=== PATIENT | female | born 2000 | race Two or more races ===

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

== ENCOUNTER 2022-01-22 00:34 | Inpatient (IN) | payer OTHER, SELFPAY ==
[2022-01-22] VITALS (7 sets, daily range): BP systolic 92–119; BP diastolic 44–72; PULSE 68–80; RESP 16–18; TEMP 36.2–36.7; O2SAT 98–100; BMI 27.0
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
--- NOTE | 2022-01-22 00:47 | ECG_ITS ---
Test Reason : OVERDOSED Blood Pressure : / mmHG Vent. Rate : 077 BPM Atrial Rate : 077 BPM P-R Int : 116 ms QRS Dur : 090 ms QT Int : 394 ms P-R-T Axes : -14 057 031 degrees QTc Int : 445 ms Poor data quality, interpretation may be adversely affected Normal sinus rhythm with sinus arrhythmia Normal ECG When compared with ECG of 23-MAR-2021 19:33, No significant change was found Referred By: Eddie Alfredo Electronically Signed By:PRITESH OTT
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
[2022-01-22 02:16] LABS: Basophils Percent Auto 0.2 % (0-2); Eosinophils Percent Auto 0.5 % (0-4); Hematocrit 36.7 % (37.0-47.0); Hemoglobin 12.2 g/dl (12.0-16.0); Imm Gran Abs Auto 0.02 X10*3/uL (0.00-0.03); Imm Gran Pct Auto 0.2 % (0.0-0.4); Lymphocytes Absolute Auto 1.3 X10*3/uL (1.2-4.9); MANUAL DIFF FLAG NO; Mean Corpuscular HGB Conc 33.2 g/dl (31.0-35.0); Mean Corpuscular Hemoglobin 27.7 pg (27.0-33.0); Mean Corpuscular Volume 83.2 fL (80.0-98.0); Mean Platelet Volume 10.9 fL (9.4-12.3); Monocytes Absolute Auto 0.5 X10*3/uL (0.1-1.2); Monocytes Percent Auto 5.6 % (2-11); Neutrophils Absolute Auto 6.5 x10*3/uL (2.0-8.3); Neutrophils Percent Auto 77.5 % (45-73); Platelet Count 205 X10*3/uL (160-400); Red Blood Count 4.41 X10*6/uL (4.20-5.50); Red Cell Distribution Width 13.5 % (11.0-16.0); White Blood Count 8.4 X10*3/uL (4.8-10.8)
[2022-01-22 02:36] LABS: COVID-19 Test Negative (Negative); IDNOW Serial# 16C4AD1C
[2022-01-22 02:38] LABS: Acetaminophen LAB < 1 mcg/mL (<30); Alanine Aminotransferase 14 U/L (0-31); Albumin Level 3.8 g/dL (3.5-5.0); Alkaline Phosphatase 86 U/L (39-117); Anion Gap 15 (12-20); Aspartate Amino Transferase 13 U/L (5-31); Bilirubin Total < 0.2 mg/dL (0.0-1.0); Blood Urea Nitrogen 13 mg/dL (9-16); Calcium 8.8 mg/dL (8.4-10.2); Carbon Dioxide 23 mmol/L (22-29); Chloride 107 mmol/L (96-108); Creatinine Clr Calc Pharmacy 120.1; Estimated Glomerular Filt Rate > 60; Ethanol < 10 mg/dL; Glucose Random 112 mg/dL (60-115); Potassium 3.9 mmol/L (3.3-5.1); Salicylate < 5.0 mg/dL (15-30); Sodium 141 mmol/L (135-145); Total Protein 6.5 g/dL (6.5-8.0)
[2022-01-22 02:43] LABS: HCG Quantitative < 2 mIU/mL
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
--- NOTE | 2022-01-22 12:26 | PC.NURSE ---
CARE team at bedside for assessment.
--- NOTE | 2022-01-22 13:52 | PC.NURSE ---
Pt seen for individual intervention on this date. Upon approach, pt was laying in hospital bed with eyes closed and easily roused. Pt expressed to be sleepy and tired, reported 0/10 anxiety and unable to quantify depression at this time. This adjusto writer operator offered pt coping strategies and activities, refused at this time, stated she just wanted to sleep. This adjusto writer operator will follow up tomorrow if patient still in ED.
--- NOTE | 2022-01-22 14:45 | PC.NURSE ---
this publicity writer assumed care of this pt at 1445. pt calm, cooperative with transfer from main ed. pt in room sleeping.
--- NOTE | 2022-01-22 18:53 | PC.NURSE ---
pt in room sleeping since transfer to POD. she did not eat lunch/dinner. per previous RN, Care Team was in with pt while in main ed. no issues observed/reported.
[2022-01-22 23:40] LABS: Amphetamine Screen Urine POSITIVE (Not Detect); Barbiturates, Urine Not Detected (Not Detect); Benzodiazepines Screen Urine Not Detected (Not Detect); Cannabinoid Screen Urine POSITIVE (Not Detect); Cocaine Screen Urine Not Detected (Not Detect); Fentanyl, urine POSITIVE (Not Detect); Opiate Screen Urine Not Detected (Not Detect); Phencyclidine Screen Urine Not Detected (Not Detect)
[2022-01-22 23:41] LABS: UPreg QC Valid YES; Urine Pregnancy NEGATIVE (NEGATIVE)
--- NOTE | 2022-01-23 05:14 | PC.NURSE ---
Patient slept through the night, no distress observed/reported, behavior appropriate and non concerning at tis time, med rec completed/pending provider's approval, patient was assessed care team section 12 inpatient bed search, vss, will continue to monitor.
--- NOTE | 2022-01-23 07:03 | PC.NURSE ---
patient appears to remain asleep at present respirations are even and unlabored patient appears in no distress
[2022-01-23 08:52] LABS: COVID-19 Test Negative (Negative)
[2022-01-23 14:22] VITALS: BP 116/77; PULSE 84; TEMP 36.4; O2SAT 97
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
--- NOTE | 2022-01-23 16:44 | PC.NURSE ---
pt experienced a seizure at 1550. staff helped her to her bed and talked to her after seizure. pt was not injured and is now resting in bed.
--- NOTE | 2022-01-23 16:56 | PC.NURSE ---
pt signed a 3 day on 01/23. notified
[2022-01-23] MEDS: Prazosin HCL 1 MG CAPSULE PO (21:01)
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
[2022-01-23] MEDS: traZODone HCL 100 MG TABLET PO (23:16)
--- NOTE | 2022-01-24 13:57 | HO.PSYCHPN ---
Subjective Subjective Date of Service: 01/24/22 Reason For Visit: s/p OD Trazodone, Bipolar d/o, PTSD, Body dysmorph Subjective Notes: 3 Day Medical Problems Affecting Mental Status: No Interim History: Met with patient. Discussed with Nursing. Review chart. Today reports wanting discharge. 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 Did not want to discuss medications. Discussed three-day notice process. Discussed safety concerns given admission circumstances and need for observation. Reported she was having panic symptoms and wanted space. Later reported to staff she had punched a wall. Reported she could not move her hand. Right hand was swollen. Will order right wrist and hand x-ray. Patient declined interventions such as pain medication or ice. Medication Compliance: Yes Side effects from medications: No Attending Groups: No Review of Systems Acute medical concerns: Yes Punched a wall. Reported she could not move her hand. Right hand was swollen. Will order right wrist and hand x-ray. Patient declined interventions such as pain medication or ice Review of Systems Review of Systems Punched wall hand swollen. Mental Status Exam Mental Status Exam Narrative: He room. Appropriately dressed. Withdrawn. Limited eye contact. Did appear depressed with irritability. Denied SI. No HI or overt psychosis noted. Insight and judgment does appear limited Diagnostics Vital Signs (24Hr): Vital Signs - 24 hr 01/23/22 14:22 Temperature 97.6 F Pulse Rate 84 Blood Pressure 116/77 Pulse Oximetry 97 Oxygen Delivery Method Room Air BMI result Body Mass Index 27.0 Labs Results: 01/22/22 02:10 01/22/22 02:10 Labs: Laboratory Results - last 48 hr 01/22/22 01/22/22 01/23/22 23:13 23:13 08:38 Urine Test NEGATIVE Urine Opiates Screen Not Detected Urine Fentanyl Screen POSITIVE H Ur Barbiturates Screen Not Detected Ur Phencyclidine Scrn Not Detected Ur Amphetamines Screen POSITIVE H U Benzodiazepines Scrn Not Detected Urine Cocaine Screen Not Detected U Marijuana (THC) Screen POSITIVE H COVID-19 (NANCY) Negative COVID-19 Clin Com See Note Medications Medications Current Medications Acetaminophen (Acetaminophen 325 Mg Tablet) 650 mg PO Q6H PRN PRN Reason: Headache/Pain Mild Scale (1-3) Al Hydroxide/Mg Hydroxide (Magnesium Hydrox/Alum Hydrox 30 Ml Oral.Susp) 30 ml PO Q6H PRN PRN Reason: Heartburn/Nausea Hydrocortisone (Hydrocortisone 1 % Cream 28.35 Gm Tube) 1 appl TOPICAL BID VINCE Last Admin: 01/23/22 22:38 Dose: Not Given Hydroxyzine HCl (Hydroxyzine Hcl 25 Mg Tablet) 25 mg PO Q6H PRN PRN Reason: Anxiety Magnesium Hydroxide (Milk Of Magnesia 30 Ml Oral.Susp) 30 ml PO DAILY PRN PRN Reason: Constipation Melatonin (Melatonin 3 Mg Tablet) 3 mg PO BEDTIME PRN PRN Reason: insomnia Prazosin HCl (Prazosin Hcl 1 Mg Capsule) 1 mg PO BEDTIME VINCE; Protocol Last Admin: 01/23/22 21:01 Dose: 1 mg Trazodone HCl (Trazodone Hcl 100 Mg Tablet) 100 mg PO BEDTIME VINCE Last Admin: 01/23/22 23:16 Dose: 100 mg Allergies Allergies Allergy/AdvReac Type Severity Reaction Status Date / Time haloperidol [From HALDOL] Allergy Intermediate DYSTONIC Verified 09/30/21 09:51 REACTION latex [LATEX] Allergy Intermediate HIVES Verified 09/30/21 09:51 mite-Dermatophagoides Allergy Unknown Verified 09/30/21 09:51 farinae, virgilio [dust mite - [place]] Seasonal Allergies Allergy Unknown Verified 09/30/21 09:51 Assessment & Plan Assessment & Plan (1) PTSD (post-traumatic stress disorder): Status: Acute Code(s): F43.10 - Post-traumatic stress disorder, unspecified (2) Bipolar II disorder: Status: Acute Code(s): F31.81 - Bipolar II disorder (3) Borderline personality disorder: Status: Acute Code(s): F60.3 - Borderline personality disorder (4) Psychogenic nonepileptic seizure: Status: Acute Code(s): F44.5 - Conversion disorder with seizures or convulsions (5) Cannabis abuse: Status: Acute Code(s): F12.10 - Cannabis abuse, uncomplicated Plan Merline is a 21 y.o. Female who carries a dx of Bipolar II DO, BPD, PTSD, PNES. She was recently discharged from [facility] after admission 08/29/21-09/04/21. During course of hospitalization, pt requested to discontinue trileptal and was briefly trialed on lamictal and prazosin but ultimately asked for these to be discontinued and for discharge on trazodone.? Pt presented to [facility] ED on 01/22/2022 after she overdosed on 15 tablets of trazodone 100 mg. Per crisis eval, she had not been attending sessions with her OP psych team for 2-3 weeks and she was recently seen by [facility] crisis in the community after disclosing suicidal statements at her PCP office. Utox positive for amphetamines, cannabis, and fentanyl. Denies alcohol abuse. 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 She has hx of multiple psych hospitalization, has extensive OP services including DMH, IHT, OT, therapy, and psych provider. She does not want medication other than trazodone and says her suicide attempt was impulsive. Plan: Will continue trazodone 100 mg HS. Pt was also re-started on prazosin per med rec and she is willing to re-trial this for nightmares. Will continue assessment, engagement. Q15 min safety checks, CV Monitor response to medications. Monitor for safety in the milieu. Discharge on stabilization. Patient seen. Chart reviewed. Discussed with team. Obtain collateral contact info?as needed 01/24/2022: No changes to current med regimen as patient did not want to discuss same. Punched wall. Will provide support and changed to 5 minute checks I spent minutes with the patient and/or on the patient floor today, greater than?50% of which was spent counseling/coordinating care. Patient educated on: therapeutic strategies Informed Consent: understands Reason for contiued inpatient stay Substantial Risk for: harm to self
[2022-01-24 20:45] VITALS: BP 107/65; PULSE 94; RESP 16; TEMP 36.5; O2SAT 98
[2022-01-24] MEDS: traZODone HCL 100 MG TABLET PO (20:47)
[2022-01-24] MEDS: Prazosin HCL 1 MG CAPSULE PO (20:47)
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
[2022-01-25 09:00] VITALS: BP 109/59; PULSE 76; TEMP 36.1
--- NOTE | 2022-01-25 16:44 | HO.PSYCHPN ---
Subjective Subjective Date of Service: 01/25/22 Reason For Visit: s/p OD Trazodone, Bipolar d/o, PTSD, Body dysmorph Subjective Notes: Rodriguez Warning and 3 Day Interim History: Discussed with nursing- no complaints ref hand and full range of motion without pain. Today much brighter yesterday was a bad day . Slept ok. Happy with room mate. No SI. Eager for discharge and driving school Medication Compliance: Yes Side effects from medications: No Attending Groups: Intermittent Review of Systems Acute medical concerns: No Review of Systems Review of Systems unremarkable Mental Status Exam Mental Status Exam Narrative: In room. Fair self care. PLeasant and more engaged. Organized. Less depressed and affect brighter. NO SI, HI, psychosis. Insight and judgment improving Diagnostics Vital Signs (24Hr): Vital Signs - 24 hr 01/24/22 20:45 01/25/22 09:00 Temperature 97.7 F 97 F Pulse Rate 94 76 Respiratory Rate 16 Blood Pressure 107/65 109/59 L Pulse Oximetry 98 Oxygen Delivery Method Room Air BMI result Body Mass Index 27.0 Labs Results: 01/22/22 02:10 01/22/22 02:10 Imaging Radiology Impressions: ITS Impressions Hand/Wrist X-Ray 01/24/22 14:22 IMPRESSION: No acute fracture or dislocation. Medications Medications Current Medications Acetaminophen (Acetaminophen 325 Mg Tablet) 650 mg PO Q6H PRN PRN Reason: Headache/Pain Mild Scale (1-3) Al Hydroxide/Mg Hydroxide (Magnesium Hydrox/Alum Hydrox 30 Ml Oral.Susp) 30 ml PO Q6H PRN PRN Reason: Heartburn/Nausea Hydrocortisone (Hydrocortisone 1 % Cream 28.35 Gm Tube) 1 appl TOPICAL BID VINCE Last Admin: 01/25/22 09:15 Dose: Not Given Hydroxyzine HCl (Hydroxyzine Hcl 25 Mg Tablet) 25 mg PO Q6H PRN PRN Reason: Anxiety Magnesium Hydroxide (Milk Of Magnesia 30 Ml Oral.Susp) 30 ml PO DAILY PRN PRN Reason: Constipation Melatonin (Melatonin 3 Mg Tablet) 3 mg PO BEDTIME PRN PRN Reason: insomnia Prazosin HCl (Prazosin Hcl 1 Mg Capsule) 1 mg PO BEDTIME VINCE; Protocol Last Admin: 01/24/22 20:47 Dose: 1 mg Trazodone HCl (Trazodone Hcl 100 Mg Tablet) 100 mg PO BEDTIME VINCE Last Admin: 01/24/22 20:47 Dose: 100 mg Allergies Allergies Allergy/AdvReac Type Severity Reaction Status Date / Time haloperidol [From HALDOL] Allergy Intermediate DYSTONIC Verified 09/30/21 09:51 REACTION latex [LATEX] Allergy Intermediate HIVES Verified 09/30/21 09:51 mite-Dermatophagoides Allergy Unknown Verified 09/30/21 09:51 farinae, virgilio [dust mite - [place]] Seasonal Allergies Allergy Unknown Verified 09/30/21 09:51 Assessment & Plan Assessment & Plan (1) PTSD (post-traumatic stress disorder): Status: Acute Code(s): F43.10 - Post-traumatic stress disorder, unspecified (2) Bipolar II disorder: Status: Acute Code(s): F31.81 - Bipolar II disorder (3) Borderline personality disorder: Status: Acute Code(s): F60.3 - Borderline personality disorder (4) Psychogenic nonepileptic seizure: Status: Acute Code(s): F44.5 - Conversion disorder with seizures or convulsions (5) Cannabis abuse: Status: Acute Code(s): F12.10 - Cannabis abuse, uncomplicated Plan Merline is a 21 y.o. Female who carries a dx of Bipolar II DO, BPD, PTSD, PNES. She was recently discharged from [facility] after admission 08/29/21-09/04/21. During course of hospitalization, pt requested to discontinue trileptal and was briefly trialed on lamictal and prazosin but ultimately asked for these to be discontinued and for discharge on trazodone.? Pt presented to [facility] ED on 01/22/2022 after she overdosed on 15 tablets of trazodone 100 mg. Per crisis eval, she had not been attending sessions with her OP psych team for 2-3 weeks and she was recently seen by [facility] crisis in the community after disclosing suicidal statements at her PCP office. Utox positive for amphetamines, cannabis, and fentanyl. Denies alcohol abuse. 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 She has hx of multiple psych hospitalization, has extensive OP services including DMH, IHT, OT, therapy, and psych provider. She does not want medication other than trazodone and says her suicide attempt was impulsive. Plan: Will continue trazodone 100 mg HS. Pt was also re-started on prazosin per med rec and she is willing to re-trial this for nightmares. Will continue assessment, engagement. Q15 min safety checks, CV Monitor response to medications. Monitor for safety in the milieu. Discharge on stabilization. Patient seen. Chart reviewed. Discussed with team. Obtain collateral contact info?as needed 01/24/2022: No changes to current med regimen as patient did not want to discuss same. Punched wall. Will provide support and changed to 5 minute checks 01/25/22: No changes to current plan. I spent minutes with the patient and/or on the patient floor today, greater than?50% of which was spent counseling/coordinating care. Reason for contiued inpatient stay Substantial Risk for: harm to self
[2022-01-25 18:00] VITALS: BP 110/70; PULSE 100; RESP 18; TEMP 36.6; O2SAT 99
[2022-01-25] MEDS: Prazosin HCL 1 MG CAPSULE PO (22:33)
[2022-01-25] MEDS: Hydrocortisone 1 % Cream 28.35 GM TUBE 1 APPL TOPICAL (22:34)
[2022-01-25] MEDS: traZODone HCL 100 MG TABLET PO (22:34)
--- NOTE | 2022-01-26 10:44 | HO.PSYCHPN ---
Subjective Subjective Date of Service: 01/26/22 Reason For Visit: s/p OD Trazodone, Bipolar d/o, PTSD, Body dysmorph Interim History: pt says she's doing alright; no SI. Patient reiterates that she never actually wanted to kill herself but only wanted a break from emotional pain. She agrees that when she gets angry her emotions overwhelm her and she gets impulsive; she agrees that medication might help but she is too anxious about medication to try it; swallowing pills is triggering for her and reminds her of past trauma and she is very worried about side effects. Pt talks about looking forward to getting into DBT; she is also looking forward to getting back to work at her job which she loves and finds her co-workers supportive. Mental Status Exam Mental Status Exam Narrative: Pt is alert and oriented; behavior is cooperative, friendly and calm; patient is not in distress; dressed in casual attire with adequate hygiene; mood is described as better and affect congruent; eye contact appropriate; Speech is normal rate, volume and prosody and not pressured; no psychomotor agitation/retardation present; thought process is organized and goal directed; Thought content is on tx; otherwise pertinent to relevant topics and without any delusional content, paranoid ideations or grandiosity; denies any SI/HI. There is no evidence of perceptual disturbance. Patients insight and judgment appear intact. Diagnostics Vital Signs (24Hr): Vital Signs - 24 hr 01/25/22 18:00 Temperature 97.8 F Pulse Rate 100 Respiratory Rate 18 Blood Pressure 110/70 Pulse Oximetry 99 Oxygen Delivery Method Room Air BMI result Body Mass Index 27.0 Labs Results: 01/22/22 02:10 01/22/22 02:10 Imaging Radiology Impressions: ITS Impressions Hand/Wrist X-Ray 01/24/22 14:22 IMPRESSION: No acute fracture or dislocation. Medications Medications Current Medications Acetaminophen (Acetaminophen 325 Mg Tablet) 650 mg PO Q6H PRN PRN Reason: Headache/Pain Mild Scale (1-3) Al Hydroxide/Mg Hydroxide (Magnesium Hydrox/Alum Hydrox 30 Ml Oral.Susp) 30 ml PO Q6H PRN PRN Reason: Heartburn/Nausea Hydrocortisone (Hydrocortisone 1 % Cream 28.35 Gm Tube) 1 appl TOPICAL BID VINCE Last Admin: 01/25/22 22:34 Dose: 1 appl Hydroxyzine HCl (Hydroxyzine Hcl 25 Mg Tablet) 25 mg PO Q6H PRN PRN Reason: Anxiety Magnesium Hydroxide (Milk Of Magnesia 30 Ml Oral.Susp) 30 ml PO DAILY PRN PRN Reason: Constipation Melatonin (Melatonin 3 Mg Tablet) 3 mg PO BEDTIME PRN PRN Reason: insomnia Prazosin HCl (Prazosin Hcl 1 Mg Capsule) 1 mg PO BEDTIME VINCE; Protocol Last Admin: 01/25/22 22:33 Dose: 1 mg Trazodone HCl (Trazodone Hcl 100 Mg Tablet) 100 mg PO BEDTIME VINCE Last Admin: 01/25/22 22:34 Dose: 100 mg Allergies Allergies Allergy/AdvReac Type Severity Reaction Status Date / Time haloperidol [From HALDOL] Allergy Intermediate DYSTONIC Verified 09/30/21 09:51 REACTION latex [LATEX] Allergy Intermediate HIVES Verified 09/30/21 09:51 mite-Dermatophagoides Allergy Unknown Verified 09/30/21 09:51 farinae, virgilio [dust mite - [place]] Seasonal Allergies Allergy Unknown Verified 09/30/21 09:51 Assessment & Plan Assessment & Plan (1) PTSD (post-traumatic stress disorder): Status: Acute Code(s): F43.10 - Post-traumatic stress disorder, unspecified (2) Bipolar II disorder: Status: Acute Code(s): F31.81 - Bipolar II disorder (3) Borderline personality disorder: Status: Acute Code(s): F60.3 - Borderline personality disorder (4) Psychogenic nonepileptic seizure: Status: Acute Code(s): F44.5 - Conversion disorder with seizures or convulsions (5) Cannabis abuse: Status: Resolved Code(s): F12.10 - Cannabis abuse, uncomplicated Plan Merline is a 21 y.o. Female who carries a dx of Bipolar II DO, BPD, PTSD, PNES. She was recently discharged from [facility] [place] admission 08/29/21-09/04/21. During course of hospitalization, pt requested to discontinue trileptal and was briefly trialed on lamictal and prazosin but ultimately asked for these to be discontinued and for discharge on trazodone.? Pt presented to [facility] on 01/22/2022 after she overdosed on 15 tablets of trazodone 100 mg. Per crisis eval, she had not been attending sessions with her OP psych team for 2-3 weeks and she was recently seen by [facility] crisis in the community after disclosing suicidal statements at her PCP office. Utox positive for amphetamines, cannabis, and fentanyl. Denies alcohol abuse. 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 She has hx of multiple psych hospitalization, has extensive OP services including [facility], IHT, OT, therapy, and psych provider. She does not want medication other than trazodone and says her suicide attempt was impulsive. 01/24/2022: No changes to current med regimen as patient did not want to discuss same. Punched wall. Will provide support and changed to 5 minute checks 01/25/22: No changes to current plan. 01/26 Patient in good mood. She continues to deny any SI. Patient knows she needs help and is willing to engage in therapy. She has several outpatient supports are ready in place. She remains ambivalent about medications thinking it would probably help but she is just not ready to do it and wants to try with therapy. Patient is future oriented, excited to get back to her job. While patient remains vulnerable to mood lability, she is currently not in imminent risk for harm to self or others. Her 3 day notice is due and she does not rise to the level of involuntary commitment. Patient's request for discharge honored Plan: Will continue trazodone 100 mg HS. Pt was also re-started on prazosin per med rec and she is willing to re-trial this for nightmares. Will continue assessment, engagement. Q15 min safety checks, 3 day Monitor response to medications. Monitor for safety in the milieu. Discharge on stabilization. Patient seen. Chart reviewed. Discussed with team. Obtain collateral contact info?as needed I spent minutes with the patient and/or on the patient floor today, greater than?50% of which was spent counseling/coordinating care. Patient educated on: diagnosis, medication risk/benefits and therapeutic strategies Informed Consent: understands Reason for contiued inpatient stay Substantial Risk for: stable for discharge
[2022-01-26 17:30] VITALS: BP 123/64; PULSE 88; RESP 16; TEMP 37.1
--- NOTE | 2022-01-26 17:58 | PC.NURSE ---
At approximately 17:24 patients room mate signaled for staff for assistance. PT was sleeping in bed and began to have seizure like activity (full body convulsions, eyes rolling back). This lasted approximately 3-4 minutes. VS 98.8 BP 123/64 HR 88. PT recovery was uneventful and is fully awake and engaging at baseline. Respirations even and unlabored. Nothing further to report at this time.
[2022-01-26] MEDS: Acetaminophen 325 MG TABLET 650 MG PO (19:45)
[2022-01-26 20:40] VITALS: BP 112/70; PULSE 78; RESP 16
[2022-01-26] MEDS: traZODone HCL 100 MG TABLET PO (20:45)
[2022-01-26] MEDS: Prazosin HCL 1 MG CAPSULE PO (20:45)
--- NOTE | 2022-01-26 20:50 | PC.NURSE ---
At approximately 19:40 patient began to have seizure like activity while laying in bed (full body shaking) and it lasted approximately 2 minutes. PT quickly came back to baseline. Nothing further to report @ this time.
[2022-01-27 09:00] VITALS: BP 121/57; PULSE 78; RESP 18; TEMP 36.6; O2SAT 100
--- NOTE | 2022-01-27 10:35 | PM.PSYDC ---
DS: Providers Provider Date of Service: 01/27/22 Date of admission: 01/23/22 10:38 Date of discharge: 01/27/22 Primary care physician: Unknown Physician Admitting clinician: Medina Becerra Attending physician on discharge: Liu Freire DS: Diagnosis Discharge Diagnosis (1) PTSD (post-traumatic stress disorder): Status: Acute (2) Bipolar II disorder: Status: Acute (3) Borderline personality disorder: Status: Acute (4) Psychogenic nonepileptic seizure: Status: Acute (5) Cannabis abuse: Status: Resolved DS: Medications Discharge Medications Home Medications: Previous Rx's Medication Instructions Recorded prazosin 1 mg capsule 1 mg PO BEDTIME 30 days #30 caps 01/27/22 trazodone 100 mg tablet 100 mg PO BEDTIME PRN insomnia 30 01/27/22 days #30 tabs Mental Status Exam Mental Status Exam Narrative: Pt is alert and oriented; behavior is cooperative, friendly and calm; patient is not in distress; dressed in casual attire with adequate hygiene; mood is described as better and affect congruent; eye contact appropriate; Speech is normal rate, volume and prosody and not pressured; no psychomotor agitation/retardation present; thought process is organized and goal directed; Thought content is on tx; otherwise pertinent to relevant topics and without any delusional content, paranoid ideations or grandiosity; denies any SI/HI. There is no evidence of perceptual disturbance. Patients insight and judgment appear intact. Data Data Completed and Pending Completed studies during hospitalization [Text1]: 01/22/22 01/22/22 01/22/22 02:10 02:10 02:10 WBC 8.4 RBC 4.41 Hgb 12.2 Hct 36.7 L MCV 83.2 MCH 27.7 MCHC 33.2 RDW 13.5 Plt Count 205 MPV 10.9 Immature Gran % (Auto) 0.2 Neut % (Auto) 77.5 H Lymph % (Auto) 16.0 L Clinton % (Auto) 5.6 Eos % (Auto) 0.5 Baso % (Auto) 0.2 Lymph # (Auto) 1.3 Clinton # (Auto) 0.5 Eos # (Auto) 0.0 Baso # (Auto) 0.0 Abs Immat Gran (auto) 0.02 Absolute Neuts (auto) 6.5 Absolute Nucleated RBC 0.000 Nucleated RBC % (auto) 0.0 Sodium 141 Potassium 3.9 Chloride 107 Carbon Dioxide 23 Anion Gap 15 BUN 13 Creatinine 0.73 Estim Creat Clear Calc 120.1 Estimated GFR > 60 Random Glucose 112 Calcium 8.8 D Total Bilirubin < 0.2 AST 13 ALT 14 Alkaline Phosphatase 86 Total Protein 6.5 Albumin 3.8 Beta HCG, Quant < 2 Urine Test Salicylates < 5.0 L Urine Opiates Screen Urine Fentanyl Screen Acetaminophen < 1 Ur Barbiturates Screen Ur Phencyclidine Scrn Ur Amphetamines Screen U Benzodiazepines Scrn Urine Cocaine Screen U Marijuana (THC) Screen Ethyl Alcohol < 10 COVID-19 (NANCY) Negative COVID-19 Clin Com See Note 01/22/22 01/22/22 01/23/22 23:13 23:13 08:38 WBC RBC Hgb Hct MCV MCH MCHC RDW Plt Count MPV Immature Gran % (Auto) Neut % (Auto) Lymph % (Auto) Clinton % (Auto) Eos % (Auto) Baso % (Auto) Lymph # (Auto) [place] # (Auto) Eos # (Auto) Baso # (Auto) Abs Immat Gran (auto) Absolute Neuts (auto) Absolute Nucleated RBC Nucleated RBC % (auto) Sodium Potassium Chloride Carbon Dioxide Anion Gap BUN Creatinine Estim Creat Clear Calc Estimated GFR Random Glucose Calcium Total Bilirubin AST ALT Alkaline Phosphatase Total Protein Albumin Beta HCG, Quant Urine Test NEGATIVE Salicylates Urine Opiates Screen Not Detected Urine Fentanyl Screen POSITIVE H Acetaminophen Ur Barbiturates Screen Not Detected Ur Phencyclidine Scrn Not Detected Ur Amphetamines Screen POSITIVE H U Benzodiazepines Scrn Not Detected Urine Cocaine Screen Not Detected U Marijuana (THC) Screen POSITIVE H Ethyl Alcohol COVID-19 (NANCY) Negative COVID-19 Clin Com See Note Imaging Diagnostic Imaging Impressions Hand/Wrist X-Ray 01/24/22 14:22 IMPRESSION: No acute fracture or dislocation. DS: Summary Hospital Course Hospital Course: HPI: Merline is a 21 y.o. Female who carries a dx, BPD, PTSD, PNES (unlikely to have bipoar disorder). She was recently discharged [place] [facility] [place] admission 08/29/21-09/04/21. During course of hospitalization, pt requested to discontinue trileptal and was briefly trialed on lamictal and prazosin but ultimately asked for these to be discontinued and for discharge on trazodone.? Pt presented to [facility] on 01/22/2022 after she overdosed on 15 tablets of trazodone 100 mg. Per crisis eval, she had not been attending sessions with her OP psych team for 2-3 weeks and she was recently seen by [facility] crisis in the community after disclosing suicidal statements at her PCP office. 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 She has hx of multiple psych hospitalization, has extensive OP services including [facility], IHT, OT, therapy, and psych provider. She does not want medication other than trazodone and says her suicide attempt was impulsive. Hospital course: On admission, patient was pleasant and calm. She said she did not really want to attempt suicide but wanted a break from her strong emotions. Patient as usual remains very ambivalent about medications, on the 1 part feeling they might be helpful, conversely very worried about side effects. She agrees that when she gets angry her emotions overwhelm her and she gets impulsive; she agrees that medication might help but she is too anxious about medication to try it; swallowing pills is triggering for her and reminds her of past trauma and she is very worried about side effects. Pt talks about looking forward to getting into DBT; she is also looking forward to getting back to work at her job which she loves and finds her co-workers supportive. Patient's mood improved with milieu therapy. She did get angry once and punched the wall but no injuries sustained and patient regretted it; going forward she remained in good behavioral and impulse control. She was also appropriate with peers and staff. Over the next several days, patient's mood improved and she continued to deny any SI. She was very open and eager to engage in outpatient therapy and already has several supports in place. Senior Online Marketing Manager continued to discuss medications and though patient remained open to considering them, did not feel ready to try them at this time and wants to continue with therapy instead. Patient placed a 3 day notice feeling she was ready for discharge. Patient is at her baseline. She is future oriented, excited to get back to her job.? While patient remains vulnerable to mood lability, she is currently not in imminent risk for harm to self or others.? Her 3 day notice is due and she does not rise to the level of involuntary commitment.? Patient's request for discharge honored Time spent discussing smoking cessation with patient: 3 to 10 minutes Status at Discharge Overall status at discharge: patient is back to baseline Time Spent with Patient Time attestation: Total time spent providing and/or coordinating discharge services: Time spent: Less than 30 minutes Discharge Plan Discharge Patient Disposition: Home, Self-Care Discharge Diagnosis: Bipolar disorder, type II (provisonal) Referrals: Therapist: Kayla Reinoso ([facility]) [Other] - 01/27/22 6:00 pm (Telehealth ) Psych Prescriber: Talia Najera ([facility]) [Other] - 02/25/22 10:00 am (In person at the office) Psych Prescriber: Talia Najera ([facility]) [Other] - 03/30/22 11:00 am (Telehealth ) Farzana Armando MD [Physician] - 1 Week (OFFICE SAID NO NEED TO SEE HER. THEY SAW HER LAST WK SHE CAN FOLLOW UP WITH HER THERAPIST.) Discharge Medications: New prazosin 1 mg Capsule 1 mg PO BEDTIME 30 Days Qty: 30 0RF Protocol: Hold for SBP< HOLD for SBP < : 90 Changed trazodone 100 mg tablet 100 mg PO BEDTIME PRN (Reason: insomnia) 30 Days Qty: 30 0RF Discontinued hydrocortisone 2.5 % cream 1 appl TOPICAL BID No Action hydrocortisone 2.5 % cream 1 appl TOPICAL BID Discharge Orders: Discharge Order (Routine); Ordered 01/27/22 Ordered By: Liu Freire Diet: Regular diet Activity on Discharge: As tolerated Stand Alone Forms: Patient Portal Discharge page, Community Support Care Plan Goals: Maintain mood and safe behaviors Take medications as prescribed Practice coping skills Continue with outpatient providers and reach out to them as needed Health Concerns: Mood stability and behaviors Plan of Treatment: Follow up with your Psychiatric provider and other outpatient providers regarding above concerns Take medications as prescribed Assessment: Risk assessment at time of discharge:? Patient was interviewed prior to discharge and found to be fully oriented and without any SI or HI. Patient has insight and demonstrates good judgment in terms of wanting to pursue treatment. Patient is not in imminent risk of harm to self or others and has a safety plan that includes presenting to the closest ER or calling 911 if feeling unsafe.? Patient has been observed closely by nursing and unit staff throughout admission; patient has demonstrated appropriate behaviors and impulse control Discharge Date/Time: 01/27/22 11:15
--- NOTE | 2022-01-27 11:34 | PC.NURSE ---
papi is discharged home , in care of family. she denies ideaation plan or intent to harm self or others. she verbalizes understanding of crisis numbers and ways to access help of harming self in future. she denies physical complaint.
== END 2022-01-27 11:15 | disposition home or self-care (01) | DRG 753 ==
LOC: HO.ED 01-23 10:51 → HO.PM5 01-23 12:16
PROVIDERS: Student in an Organized Health Care Education/Training Program; Admitting Provider Psychiatry & Neurology Psychiatry; Emergency Provider Internal Medicine; Visit Provider Psychiatry & Neurology Psychiatry
DX: F31.81 Bipolar II disorder (principal); R45.851 Suicidal ideations; F44.5 Conversion disorder with seizures or convulsions; F12.10 Cannabis abuse, uncomplicated; F60.3 Borderline personality disorder; F45.22 Body dysmorphic disorder; F43.10 Post-traumatic stress disorder, unspecified; L30.9 Dermatitis, unspecified; Z20.822 Contact with and (suspected) exposure to COVID-19; Z91.51 Personal history of suicidal behavior
CPT/HCPCS: 73110; 73130; 80053; 80143; 80179; 80307; 81025; 82077; 84702; 85025; 87635; 93005; 99285

== ENCOUNTER 2022-02-04 14:07 | Inpatient (IN) | payer OTHER, SELFPAY ==
[2022-02-04 14:32] VITALS: BP 128/67; PULSE 103; RESP 16; TEMP 37; O2SAT 99
[2022-02-04 14:35] VITALS: BP 142/86; PULSE 102; RESP 18; TEMP 37; O2SAT 98; BMI 30.2
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
--- NOTE | 2022-02-04 15:27 | PHA.MEDREC ---
Pharmacy Consult ? Medication Reconciliation Pharmacy has completed the medication reconciliation.
[2022-02-04 16:04] LABS: COVID-19 Test Negative (Negative); IDNOW Serial# 55D5AD1C
--- NOTE | 2022-02-04 16:22 | PC.NURSE ---
tech arrived from main ED to draw client labs client refused dont feel safe enough right now t/w explained its common;y required to go inpatient. did inform tech of hx of ptsd and clients request to be touched minimally.
[2022-02-04 17:11] LABS: MANUAL DIFF FLAG NO
[2022-02-04 17:25] LABS: Basophils Percent Auto 0.3 % (0-2); Eosinophils Absolute Auto 0.1 X10*3/uL (0.0-0.4); Eosinophils Percent Auto 0.9 % (0-4); Hematocrit 39.7 % (37.0-47.0); Hemoglobin 12.9 g/dl (12.0-16.0); Imm Gran Abs Auto 0.05 X10*3/uL (0.00-0.03); Imm Gran Pct Auto 0.7 % (0.0-0.4); Lymphocytes Absolute Auto 1.8 X10*3/uL (1.2-4.9); Lymphocytes Percent Auto 23.3 % (20-40); Mean Corpuscular HGB Conc 32.5 g/dl (31.0-35.0); Mean Corpuscular Hemoglobin 27.3 pg (27.0-33.0); Mean Corpuscular Volume 84.1 fL (80.0-98.0); Mean Platelet Volume 11.1 fL (9.4-12.3); Monocytes Absolute Auto 0.5 X10*3/uL (0.1-1.2); Neutrophils Absolute Auto 5.3 x10*3/uL (2.0-8.3); Neutrophils Percent Auto 68.8 % (45-73); Platelet Count 207 X10*3/uL (160-400); Red Blood Count 4.72 X10*6/uL (4.20-5.50); Red Cell Distribution Width 13.4 % (11.0-16.0); White Blood Count 7.6 X10*3/uL (4.8-10.8)
[2022-02-04 17:30] LABS: Acetaminophen LAB < 1 mcg/mL (<30); Alanine Aminotransferase 17 U/L (0-31); Albumin Level 4.2 g/dL (3.5-5.0); Alkaline Phosphatase 91 U/L (39-117); Anion Gap 14 (12-20); Aspartate Amino Transferase 15 U/L (5-31); Bilirubin Total 0.6 mg/dL (0.0-1.0); Blood Urea Nitrogen 7 mg/dL (9-16); Calcium 9.7 mg/dL (8.4-10.2); Carbon Dioxide 26 mmol/L (22-29); Chloride 105 mmol/L (96-108); Creatinine Clr Calc Pharmacy 113.2; Estimated Glomerular Filt Rate > 60; Ethanol < 10 mg/dL; Glucose Random 76 mg/dL (60-115); Potassium 4.7 mmol/L (3.3-5.1); Salicylate < 5.0 mg/dL (15-30); Sodium 140 mmol/L (135-145); Total Protein 7.1 g/dL (6.5-8.0)
[2022-02-04 20:11] LABS: UPreg QC Valid YES; Urine Pregnancy NEGATIVE (NEGATIVE)
[2022-02-04 20:18] LABS: Amphetamine Screen Urine Not Detected (Not Detect); Barbiturates, Urine Not Detected (Not Detect); Benzodiazepines Screen Urine Not Detected (Not Detect); Cannabinoid Screen Urine Not Detected (Not Detect); Cocaine Screen Urine Not Detected (Not Detect); Fentanyl, urine Not Detected (Not Detect); Opiate Screen Urine Not Detected (Not Detect); Phencyclidine Screen Urine Not Detected (Not Detect)
[2022-02-04] MEDS: diazePAM 10 MG/2 ML CARTRIDGE 2.5 MG IM (21:52)
[2022-02-04] MEDS: chlorproMAZINE HCl 25 MG/ML AMPUL 50 MG IM (21:54)
[2022-02-04 22:10] VITALS: BP 118/73; PULSE 102; TEMP 36.7
[2022-02-04] MEDS: Prazosin HCL 1 MG CAPSULE PO (22:53)
[2022-02-04] MEDS: traZODone HCL 100 MG TABLET PO (22:53)
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
[2022-02-05 06:00] VITALS: BP 103/51; PULSE 79; RESP 18; TEMP 37
[2022-02-05 14:04] VITALS: BMI 30.6
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
[2022-02-05 18:00] VITALS: BP 117/59; PULSE 101; TEMP 36.1; O2SAT 96
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
[2022-02-05] MEDS: Prazosin HCL 1 MG CAPSULE PO (22:03)
[2022-02-05] MEDS: traZODone HCL 100 MG TABLET PO (22:03)
[2022-02-06 06:00] VITALS: BP 96/50; PULSE 78; RESP 16; TEMP 36.6; O2SAT 96
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
[2022-02-06] MEDS: Acetaminophen 325 MG TABLET 650 MG PO ×2 (16:49→22:17)
[2022-02-06] MEDS: FLUoxetine HCl 10 MG CAPSULE PO (17:52)
[2022-02-06 18:00] VITALS: BP 127/65; PULSE 100; RESP 16; TEMP 36.8; O2SAT 100
[2022-02-06] MEDS: Hydrocortisone 1 % Cream 28.35 GM TUBE 1 APPL TOPICAL (19:35)
[2022-02-06] MEDS: traZODone HCL 100 MG TABLET PO (22:17)
[2022-02-07 08:20] VITALS: BP 105/53; PULSE 72; TEMP 36.4
[2022-02-07] MEDS: Hydrocortisone 1 % Cream 28.35 GM TUBE 1 APPL TOPICAL (10:10)
[2022-02-07] MEDS: FLUoxetine HCl 10 MG CAPSULE PO (10:10)
[2022-02-07] MEDS: Acetaminophen 325 MG TABLET 650 MG PO (10:12)
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
[2022-02-07 19:15] VITALS: BP 101/69; PULSE 79; TEMP 36.7; O2SAT 99
[2022-02-07] MEDS: traZODone HCL 100 MG TABLET PO (21:40)
[2022-02-08 06:00] VITALS: BP 109/59; PULSE 67; RESP 16; TEMP 37.1; O2SAT 98
[2022-02-08] MEDS: FLUoxetine HCl 10 MG CAPSULE PO (09:17)
--- NOTE | 2022-02-08 14:59 | HO.PSYCHPN ---
Subjective Subjective Date of Service: 02/08/22 Reason For Visit: Depression/SI Interim History: Patient was again feeling a little down but today she was able to clearly identify what the triggers were, what her automatic thoughts were and how they affect her feelings and behaviors. Patient said that because of this she was able to alter her behaviors which she reports helped her mood. Sweatband Cutting Machine Operator and patient looked through list of cognitive distortions and discuss them, patient again received this information well. Patient will try to identify her own cognitive distortions throughout the day. Tolerating Prozac well. No nightmares since stopping prazosin Mental Status Exam Mental Status Exam Narrative: Pt is alert and oriented; behavior is cooperative, forthcoming, more calm; patient is not in distress; dressed in casual attire with adequate hygiene; mood is described as a little better and affect congruent; eye contact appropriate; Speech is normal rate, volume and prosody and not pressured; no psychomotor agitation/retardation present; thought process is organized and goal directed; Thought content is on dealing with overwhelming emotions; otherwise pertinent to relevant topics and without any delusional content, paranoid ideations or grandiosity; no SI; denies any active SI/HI. There is no evidence of perceptual disturbance. Patients insight and judgment are impaired but improving. Diagnostics Vital Signs (24Hr): Vital Signs - 24 hr 02/07/22 19:15 02/08/22 06:00 Temperature 98.1 F 98.7 F Pulse Rate 79 67 Respiratory Rate 16 Blood Pressure 101/69 109/59 L Pulse Oximetry 99 98 Oxygen Delivery Method Room Air Room Air BMI result Body Mass Index 30.6 Labs Results: 02/04/22 17:02 02/04/22 17:02 Medications Medications Current Medications Acetaminophen (Acetaminophen 325 Mg Tablet) 650 mg PO Q6H PRN PRN Reason: Headache/Pain Mild Scale (1-3) Last Admin: 02/07/22 10:12 Dose: 650 mg Al Hydroxide/Mg Hydroxide (Magnesium Hydrox/Alum Hydrox 30 Ml Oral.Susp) 30 ml PO Q6H PRN PRN Reason: Heartburn/Nausea Fluoxetine HCl (Fluoxetine Hcl 10 Mg Capsule) 10 mg PO DAILY [facility] Last Admin: 02/08/22 09:17 Dose: 10 mg Hydrocortisone (Hydrocortisone 1 % Cream 28.35 Gm Tube) 1 appl TOPICAL BID [facility] Last Admin: 02/08/22 09:18 Dose: Not Given Hydroxyzine HCl (Hydroxyzine Hcl 25 Mg Tablet) 25 mg PO Q6H PRN PRN Reason: Anxiety Magnesium Hydroxide (Milk Of Magnesia 30 Ml Oral.Susp) 30 ml PO DAILY PRN PRN Reason: Constipation Nicotine Polacrilex (Nicotine Polacrilex 2 Mg Gum) 2 mg BUCCAL Q2H PRN PRN Reason: Nicotine Cravings Pharmacy Consult (Consult Rx Perform Med Rec) 1 each MISCELLANE ONCE PRN PRN Reason: Consult order Trazodone HCl (Trazodone Hcl 100 Mg Tablet) 100 mg PO BEDTIME PRN PRN Reason: insomnia Last Admin: 02/07/22 21:40 Dose: 100 mg Trazodone HCl (Trazodone Hcl 50 Mg Tablet) 50 mg PO BEDTIME PRN PRN Reason: Insomnia Allergies Allergies Allergy/AdvReac Type Severity Reaction Status Date / Time haloperidol [From HALDOL] Allergy Intermediate DYSTONIC Verified 09/30/21 09:51 REACTION latex [LATEX] Allergy Intermediate HIVES Verified 09/30/21 09:51 mite-Dermatophagoides Allergy Unknown Verified 09/30/21 09:51 farinae, virgilio [dust mite - [place]] Seasonal Allergies Allergy Unknown Verified 09/30/21 09:51 Assessment & Plan Assessment & Plan (1) PTSD (post-traumatic stress disorder): Status: Acute Code(s): F43.10 - Post-traumatic stress disorder, unspecified (2) Borderline personality disorder: Status: Acute Code(s): F60.3 - Borderline personality disorder (3) Psychogenic nonepileptic seizure: Status: Acute Code(s): F44.5 - Conversion disorder with seizures or convulsions (4) MDD (major depressive disorder), recurrent episode, moderate: Status: Acute Code(s): F33.1 - Major depressive disorder, recurrent, moderate Plan Patient is a resilient, bright, friendly 21-year-old female with history of PTSD, borderline personality, ADHD who presents for sadness and suicidality after recent discharge from . Patient reports that she soon felt empty again with overwhelming self-deprecating thoughts and eventually became suicidal. Patient has a history of being diagnosed with bipolar disorder, however she doubts this and this was diagnosed in childhood which was a chaotic time for her. Will further review history. Patient is open to taking medications which is different presentation than past admissions where she has not wanted to. Patient demonstrates insight into connecting her past experiences with current struggles and is eager for help. Patient's PTSD is likely complex; she also has dissociative symptoms. Also nonepileptic seizures. Patient also has a lot of strengths and is intelligent, hardworking, has been able to hold down jobs and has realistic dreams and goals for herself. 02/06 depressed but very engaged in treatment and working to understand how her history Is affecting her present 02/07 patient engaged in treatment and responded well to CBT therapy session.? Depressed but no SI; fighting self-deprecating thoughts 02/08 continues to work on CBT type exercises and make in progress. Mood a little better. Discussed medication and patient will stay where it is for now Plan: CV Q 15 minute checks Discontinue Prazosin; nightmares have resolved Continue Prozac 10 mg daily for PTSD, anxiety and depression Considered Lamictal Social work to help establish aftercare, including trauma informed therapy I spent minutes with the patient and/or on the patient floor today, greater than?50% of which was spent counseling/coordinating care. Patient educated on: diagnosis, medication risk/benefits and therapeutic strategies Informed Consent: understands Reason for contiued inpatient stay Substantial Risk for: med/psych decompensation
[2022-02-08 17:57] LABS: Influenza A PCR NEGATIVE (Negative); Influenza B PCR NEGATIVE (Negative); Resp Syncy Virus RNA Qual PCR NEGATIVE (Negative); SARS COV2 PCR INHOUSE NEGATIVE (Negative)
[2022-02-08 18:00] VITALS: BP 127/63; PULSE 82; RESP 98; TEMP 36.2; O2SAT 98
[2022-02-08] MEDS: traZODone HCL 50 MG TABLET PO (20:32)
[2022-02-08] MEDS: traZODone HCL 100 MG TABLET PO (20:32)
[2022-02-08] MEDS: Acetaminophen 325 MG TABLET 650 MG PO (20:32)
[2022-02-09] MEDS: FLUoxetine HCl 10 MG CAPSULE PO ×2 (08:56→17:51)
[2022-02-09 10:25] VITALS: BP 110/61; RESP 18; TEMP 36.9; O2SAT 98
--- NOTE | 2022-02-09 10:43 | HO.PSYCHPN ---
Subjective Subjective Date of Service: 02/09/22 Reason For Visit: Depression/SI Interim History: Patient reports that she is overall doing well. She shared how she had a very intense conversation with her grandmother and was able to implement numerous times, the skills she is learning from CBT therapy sessions. Patient said she realizes her grandmother is not the enemy; that her grandmother is just like her, doing her best and trying to overcome her own history of trauma. Patient shared the closeness and can ship she feels with this person. Patient momentarily started feeling very angry at herself for the way she has been on loving towards her younger brother. However she was able to quickly calmed down, utilizing the same CBT skills, working herself through the exercise and shared much gratitude for having learn this. Patient said for the 1st time she is anxious about discharge because she seen her pattern where when she gets upset she gets suicidal thoughts. She said she never admitted that to herself until this admission. Patient however understands that she has quite a road ahead of her, where she will continue to learn skills, continued to stabilize and that working on 1 self is a lifelong endeavor. Patient said that sometimes she feels overwhelmed by it another time she feels like this is normal and okay with that. Account Classification Clerk normalized this ambivalence and agrees that this is the human condition. Patient remains very future oriented and is excited about continuing treatment. She shared her enthusiasm about getting involved with DBT. Patient agreed to increase Prozac, feeling that the benefits outweigh the risks of waiting longer before increasing dose. Account Classification Clerk agrees. Discussed other medication options, however patient will see how Prozac does for while Mental Status Exam Mental Status Exam Narrative: Pt is alert and oriented; behavior is cooperative, forthcoming, more calm; patient is not in distress; dressed in casual attire with adequate hygiene; mood is described as better and affect congruent; eye contact appropriate; Speech is normal rate, volume and prosody and not pressured; no psychomotor agitation/retardation present; thought process is organized and goal directed; Thought content is on dealing with overwhelming emotions; otherwise pertinent to relevant topics and without any delusional content, paranoid ideations or grandiosity; no SI; denies any active SI/HI. There is no evidence of perceptual disturbance. Patients insight and judgment are impaired but fair and adequate and baseline (surpassed former baseline) Diagnostics Vital Signs (24Hr): Vital Signs - 24 hr 02/08/22 18:00 02/09/22 10:25 Temperature 97.2 F 98.4 F Pulse Rate 82 Respiratory Rate 98 H 18 Blood Pressure 127/63 110/61 Pulse Oximetry 98 98 Oxygen Delivery Method Room Air Room Air BMI result Body Mass Index 30.6 Labs Results: 02/04/22 17:02 02/04/22 17:02 Labs: Laboratory Results - last 48 hr 02/08/22 17:00 Influenza Type A (PCR) NEGATIVE Influenza Type B (PCR) NEGATIVE RSV RNA Qual (PCR) NEGATIVE SARS-CoV-2 RNA (RT-PCR) NEGATIVE Medications Medications Current Medications Acetaminophen (Acetaminophen 325 Mg Tablet) 650 mg PO Q6H PRN PRN Reason: Headache/Pain Mild Scale (1-3) Last Admin: 02/08/22 20:32 Dose: 650 mg Al Hydroxide/Mg Hydroxide (Magnesium Hydrox/Alum Hydrox 30 Ml Oral.Susp) 30 ml PO Q6H PRN PRN Reason: Heartburn/Nausea Fluoxetine HCl (Fluoxetine Hcl 10 Mg Capsule) 10 mg PO DAILY [facility] Last Admin: 02/09/22 08:56 Dose: 10 mg Hydrocortisone (Hydrocortisone 1 % Cream 28.35 Gm Tube) 1 appl TOPICAL BID [facility] Last Admin: 02/09/22 08:58 Dose: Not Given Hydroxyzine HCl (Hydroxyzine Hcl 25 Mg Tablet) 25 mg PO Q6H PRN PRN Reason: Anxiety Magnesium Hydroxide (Milk Of Magnesia 30 Ml Oral.Susp) 30 ml PO DAILY PRN PRN Reason: Constipation Nicotine Polacrilex (Nicotine Polacrilex 2 Mg Gum) 2 mg BUCCAL Q2H PRN PRN Reason: Nicotine Cravings Pharmacy Consult (Consult Rx Perform Med Rec) 1 each MISCELLANE ONCE PRN PRN Reason: Consult order Trazodone HCl (Trazodone Hcl 100 Mg Tablet) 100 mg PO BEDTIME PRN PRN Reason: insomnia Last Admin: 02/08/22 20:32 Dose: 100 mg Trazodone HCl (Trazodone Hcl 50 Mg Tablet) 50 mg PO BEDTIME PRN PRN Reason: Insomnia Last Admin: 02/08/22 20:32 Dose: 50 mg Allergies Allergies Allergy/AdvReac Type Severity Reaction Status Date / Time haloperidol [From HALDOL] Allergy Intermediate DYSTONIC Verified 09/30/21 09:51 REACTION latex [LATEX] Allergy Intermediate HIVES Verified 09/30/21 09:51 mite-Dermatophagoides Allergy Unknown Verified 09/30/21 09:51 farinae, virgilio [dust mite - [place]] Seasonal Allergies Allergy Unknown Verified 09/30/21 09:51 Assessment & Plan Assessment & Plan (1) PTSD (post-traumatic stress disorder): Status: Acute Code(s): F43.10 - Post-traumatic stress disorder, unspecified (2) Borderline personality disorder: Status: Acute Code(s): F60.3 - Borderline personality disorder (3) Psychogenic nonepileptic seizure: Status: Acute Code(s): F44.5 - Conversion disorder with seizures or convulsions (4) MDD (major depressive disorder), recurrent episode, moderate: Status: Acute Code(s): F33.1 - Major depressive disorder, recurrent, moderate Plan Patient is a resilient, bright, friendly 21-year-old female with history of PTSD, borderline personality, ADHD who presents for sadness and suicidality after recent discharge from . Patient reports that she soon felt empty again with overwhelming self-deprecating thoughts and eventually became suicidal. Patient has a history of being diagnosed with bipolar disorder, however she doubts this and this was diagnosed in childhood which was a chaotic time for her. Will further review history. Patient is open to taking medications which is different presentation than past admissions where she has not wanted to. Patient demonstrates insight into connecting her past experiences with current struggles and is eager for help. Patient's PTSD is likely complex; she also has dissociative symptoms. Also nonepileptic seizures. Patient also has a lot of strengths and is intelligent, hardworking, has been able to hold down jobs and has realistic dreams and goals for herself. 02/06 depressed but very engaged in treatment and working to understand how her history Is affecting her present 02/07 patient engaged in treatment and responded well to CBT therapy session.? Depressed but no SI; fighting self-deprecating thoughts 02/08 continues to work on CBT type exercises and make in progress. Mood a little better. Discussed medication and patient will stay where it is for now 02/09. Patient doing well, using coping skills to deal with her emotions. Patient optimistic about outpatient treatment to though also appropriately cautious Plan: CV Q 15 minute checks Discontinue Prazosin; nightmares have resolved Increase Prozac to 20 mg daily for PTSD, anxiety and depression Considered Lamictal Social work to help establish aftercare, including trauma informed therapy I spent minutes with the patient and/or on the patient floor today, greater than?50% of which was spent counseling/coordinating care. Patient educated on: diagnosis, medication risk/benefits and therapeutic strategies Informed Consent: understands Reason for contiued inpatient stay Substantial Risk for: stable for discharge
[2022-02-09 20:35] VITALS: BP 119/59; PULSE 97; RESP 16; TEMP 36.2; O2SAT 99
[2022-02-09] MEDS: traZODone HCL 100 MG TABLET PO (21:45)
[2022-02-09] MEDS: diazePAM 2 MG TABLET 2.5 MG PO (22:48)
[2022-02-10] MEDS: chlorproMAZINE HCl 25 MG TABLET 50 MG PO (00:26)
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
[2022-02-10 09:43] VITALS: BP 106/56; PULSE 82; TEMP 36.9
[2022-02-10] MEDS: FLUoxetine HCl 20 MG CAPSULE PO (09:52)
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
[2022-02-10] MEDS: risperiDONE 0.5 MG TABLET PO (14:55)
[2022-02-10 18:00] VITALS: BP 127/56; PULSE 87; TEMP 36.8; O2SAT 97
[2022-02-10] MEDS: Acetaminophen 325 MG TABLET 650 MG PO (19:26)
[2022-02-10] MEDS: traZODone HCL 100 MG TABLET PO (22:07)
--- NOTE | 2022-02-10 22:31 | PC.NURSE ---
pt signed a 3 day on 02/10/22. 3 day is up on 02/13/22. MD and staff notified.
[2022-02-11 06:00] VITALS: BP 108/62; PULSE 88; TEMP 36.3; O2SAT 99
[2022-02-11] MEDS: risperiDONE 0.5 MG TABLET PO (09:16)
[2022-02-11] MEDS: FLUoxetine HCl 20 MG CAPSULE PO (09:16)
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
[2022-02-11 18:00] VITALS: BP 110/70; PULSE 68; RESP 18; TEMP 36.4; O2SAT 98
[2022-02-11] MEDS: traZODone HCL 100 MG TABLET PO (21:20)
[2022-02-12] MEDS: FLUoxetine HCl 20 MG CAPSULE PO (08:57)
[2022-02-12] MEDS: risperiDONE 0.5 MG TABLET PO (08:57)
[2022-02-12 09:08] VITALS: BP 162/63; PULSE 98; RESP 16; TEMP 36.9; O2SAT 98
[2022-02-12 09:19] VITALS: BMI 31.2
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
== END 2022-02-12 14:53 | disposition home or self-care (01) | DRG 751 ==
LOC: HO.ED 20:04 → HO.PM5 20:30
PROVIDERS: Admitting Provider Psychiatry & Neurology Psychiatry; Emergency Provider Emergency Medicine Emergency Medical Services; PCP Pediatrics; Visit Provider Psychiatry & Neurology Psychiatry
DX: F33.1 Major depressive disorder, recurrent, moderate (principal); R45.851 Suicidal ideations; F90.9 Attention-deficit hyperactivity disorder, unspecified type; F45.22 Body dysmorphic disorder; F60.3 Borderline personality disorder; F43.10 Post-traumatic stress disorder, unspecified; Z20.822 Contact with and (suspected) exposure to COVID-19; Z91.040 Latex allergy status; Z88.8 Allergy status to other drugs, medicaments and biological substances; Z79.899 Other long term (current) drug therapy
CPT/HCPCS: 0241U; 36415; 80053; 80143; 80179; 80307; 81025; 82077; 85025; 87635; 99285; J3230; J3360

== ENCOUNTER 2022-02-27 13:30 | Outpatient (REF) | payer OTHER, SELFPAY ==
[2022-02-28 05:35] LABS: CT PCR NOT DETECTED (Not Detect.)
[2022-02-28 05:36] LABS: NG PCR NOT DETECTED (Not Detect.)
[2022-02-28 14:25] LABS: BV Int Neg Control Negative (Negative); BV Int Pos Control Positive (Positive)
== END 2022-02-27 13:31 | disposition home or self-care (01) ==
LOC: HO.LNP 13:30
PROVIDERS: Visit Provider Advanced Practice Midwife
DX: Z11.3 Encounter for screening for infections with a predominantly sexual mode of transmission (principal); N89.8 Other specified noninflammatory disorders of vagina; N90.89 Other specified noninflammatory disorders of vulva and perineum; Z20.2 Contact with and (suspected) exposure to infections with a predominantly sexual mode of transmission
CPT/HCPCS: 87480; 87491; 87510; 87591; 87660; 99212

== ENCOUNTER 2022-04-03 08:02 | Outpatient (REF) | payer OTHER, SELFPAY ==
[2022-04-04 15:00] LABS: BV Int Neg Control Negative (Negative); BV Int Pos Control Positive (Positive)
== END 2022-04-03 08:03 | disposition home or self-care (01) ==
LOC: HO.LNP 08:02
PROVIDERS: Visit Provider Advanced Practice Midwife
DX: L29.2 Pruritus vulvae (principal); N89.8 Other specified noninflammatory disorders of vagina
CPT/HCPCS: 87480; 87510; 87660; 99212

== ENCOUNTER 2022-04-20 12:27 | Emergency (ER) | payer OTHER, SELFPAY ==
[2022-04-20 12:47] VITALS: PULSE 92; O2SAT 99
[2022-04-20 13:04] VITALS: BP 116/65; PULSE 86; RESP 18; TEMP 37.1; O2SAT 99; BMI 30.2
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
== END 2022-04-20 14:29 | disposition home or self-care (01) ==
PROVIDERS: Emergency Provider Emergency Medicine; PCP Pediatrics
DX: R56.9 Unspecified convulsions (principal); F41.1 Generalized anxiety disorder; F43.0 Acute stress reaction; F33.1 Major depressive disorder, recurrent, moderate; F12.90 Cannabis use, unspecified, uncomplicated; Z79.899 Other long term (current) drug therapy
CPT/HCPCS: 99282

== ENCOUNTER 2022-10-13 18:03 | Emergency (ER) | payer OTHER, SELFPAY ==
[2022-10-13 18:06] VITALS: PULSE 87; RESP 18; TEMP 37.3; O2SAT 98; BMI 33.3
--- NOTE | 2022-10-13 18:32 | PC.NURSE ---
Pt refusing to talk. Reports has not took medications for over one week , but reports taking Fluoxetine, risperidone, and trazadone.
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
[2022-10-13 19:19] LABS: MANUAL DIFF FLAG NO
[2022-10-13 19:24] LABS: COVID-19 Test Negative (Negative); IDNOW Serial# 08D9AD1C
[2022-10-13 19:29] LABS: Basophils Percent Auto 0.3 % (0-2); Eosinophils Absolute Auto 0.1 X10*3/uL (0.0-0.4); Eosinophils Percent Auto 1.1 % (0-4); Hematocrit 38.9 % (37.0-47.0); Hemoglobin 12.7 g/dl (12.0-16.0); Imm Gran Abs Auto 0.04 X10*3/uL (0.00-0.03); Imm Gran Pct Auto 0.4 % (0.0-0.4); Lymphocytes Absolute Auto 1.9 X10*3/uL (1.2-4.9); Lymphocytes Percent Auto 20.3 % (20-40); Mean Corpuscular HGB Conc 32.6 g/dl (31.0-35.0); Mean Corpuscular Hemoglobin 27.4 pg (27.0-33.0); Mean Platelet Volume 11.1 fL (9.4-12.3); Monocytes Absolute Auto 0.6 X10*3/uL (0.1-1.2); Monocytes Percent Auto 6.5 % (2-11); Neutrophils Absolute Auto 6.6 x10*3/uL (2.0-8.3); Neutrophils Percent Auto 71.4 % (45-73); Platelet Count 234 X10*3/uL (160-400); Red Blood Count 4.63 X10*6/uL (4.20-5.50); Red Cell Distribution Width 13.8 % (11.0-16.0); White Blood Count 9.2 X10*3/uL (4.8-10.8)
[2022-10-13 19:30] LABS: Appearance Urine Clear; Color Urine Yellow; Glucose Urine UA Negative (Negative); Leukocyte Esterase Urine Trace (Negative); Nitrite Urine Negative (Negative); PH 6.5 (5.0-9.0); Specific Gravity - Urine 1.015 (1.005-1.025); UMIC TRIGGER UA YES; UPreg QC Valid YES; Urine Blood Negative (Negative); Urine Ketones Negative (Negative); Urine Pregnancy NEGATIVE (NEGATIVE); Urine Protein Negative (Neg-Trace)
[2022-10-13 19:35] LABS: Bacteria Urine None Seen (None Seen); Hyaline Casts Urine 0-2 /LPF (0-2); RBC Urine 0-2 /HPF (0-2); WBC Urine 0-5 /HPF (0-5)
[2022-10-13 19:38] LABS: Alanine Aminotransferase 15 U/L (0-31); Albumin Level 3.9 g/dL (3.5-5.0); Alkaline Phosphatase 76 U/L (39-117); Anion Gap 11 (12-20); Aspartate Amino Transferase 15 U/L (5-31); Bilirubin Total 0.2 mg/dL (0.0-1.0); Blood Urea Nitrogen 12 mg/dL (9-16); Calcium 9.4 mg/dL (8.4-10.2); Carbon Dioxide 28 mmol/L (22-29); Chloride 104 mmol/L (96-108); Creatinine Clr Calc Pharmacy 101.4; Estimated Glomerular Filt Rate > 60; Ethanol < 10 mg/dL; Glucose Random 81 mg/dL (60-115); Potassium 4.4 mmol/L (3.3-5.1); Sodium 139 mmol/L (135-145); Total Protein 6.9 g/dL (6.5-8.0)
[2022-10-13 19:40] LABS: Amphetamine Screen Urine Not Detected (Not Detect); Barbiturates, Urine Not Detected (Not Detect); Benzodiazepines Screen Urine Not Detected (Not Detect); Cannabinoid Screen Urine POSITIVE (Not Detect); Cocaine Screen Urine Not Detected (Not Detect); Fentanyl, urine Not Detected (Not Detect); Opiate Screen Urine Not Detected (Not Detect); Phencyclidine Screen Urine Not Detected (Not Detect)
--- NOTE | 2022-10-13 20:41 | MHC.CARE ---
Late Entry: CARE Team informed by [facility] co-response clinician Kathleen that they responded to pt's home after she told her therapist she was suicidal w/ plan and inten to OD on meds. Pt recently has an admission to [facility], however, they had to bring pt to the ED because she ran back into to house as if to take meds to overdose. In May pt reportedly had an attempt via overdose on trazodone. Hx of [facility] reported by [facility].
--- NOTE | 2022-10-14 05:33 | PC.NURSE ---
Patient slept through the night, no distress observed/reported, patient is on section 12 filed [facility] clinician after patient reported suicidal ideation with plan to overdose her her prescribed medication, patient calm and quiet, no distress observed/reported, care consult ordered/pending evaluation, med rec completed/pending provider's approval, VSS, will continue to monitor.
[2022-10-14 06:11] VITALS: RESP 18
--- NOTE | 2022-10-14 07:25 | PC.NURSE ---
patient appears to remain asleep patients respirations are even and unlabopred patient appears in no distress
[2022-10-14] MEDS: FLUoxetine HCl 10 MG CAPSULE 30 MG PO (09:07)
[2022-10-14] MEDS: risperiDONE 0.5 MG TABLET PO (09:08)
[2022-10-14] MEDS: ARIPiprazole 2 MG TABLET PO (09:08)
--- NOTE | 2022-10-14 21:32 | MHC.CARE ---
CARE TEAM contacted patient to check in. Patient was vague however reported she completed her tasks today. She agreed for follow up/check in call tomorrow.
== END 2022-10-14 09:36 | disposition home or self-care (01) ==
PROVIDERS: Physician Assistant; Emergency Provider Student in an Organized Health Care Education/Training Program; PCP Pediatrics
DX: F12.90 Cannabis use, unspecified, uncomplicated (principal); R45.851 Suicidal ideations; Z91.51 Personal history of suicidal behavior; Z79.899 Other long term (current) drug therapy; F43.10 Post-traumatic stress disorder, unspecified; Z20.822 Contact with and (suspected) exposure to COVID-19
CPT/HCPCS: 36415; 80053; 80307; 81001; 81025; 85025; 87635; 99284; S9485

== ENCOUNTER 2024-05-11 18:54 | Emergency (ER) | payer BC, SELFPAY ==
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
[2024-05-11] MEDS: LORazepam 2 MG/ML VIAL IM (19:17)
[2024-05-11 19:22] VITALS: BP 121/80; PULSE 111; RESP 18; TEMP 37.1; O2SAT 97; BMI 29.0
[2024-05-11 19:27] LABS: MANUAL DIFF FLAG NO
[2024-05-11 19:28] LABS: Basophils Percent Auto 0.3 % (0-2); Eosinophils Absolute Auto 0.1 X10*3/uL (0.0-0.4); Eosinophils Percent Auto 0.5 % (0-4); Hemoglobin 12.3 g/dl (12.0-16.0); Imm Gran Abs Auto 0.04 X10*3/uL (0.00-0.03); Imm Gran Pct Auto 0.3 % (0.0-0.4); Lymphocytes Absolute Auto 1.4 X10*3/uL (1.2-4.9); Lymphocytes Percent Auto 10.3 % (20-40); Mean Corpuscular HGB Conc 34.2 g/dl (31.0-35.0); Mean Corpuscular Hemoglobin 29.2 pg (27.0-33.0); Mean Corpuscular Volume 85.5 fL (80.0-98.0); Mean Platelet Volume 11.4 fL (9.4-12.3); Monocytes Absolute Auto 0.5 X10*3/uL (0.1-1.2); Monocytes Percent Auto 3.7 % (2-11); Neutrophils Absolute Auto 11.5 x10*3/uL (2.0-8.3); Neutrophils Percent Auto 84.9 % (45-73); Platelet Count 233 X10*3/uL (160-400); Red Blood Count 4.21 X10*6/uL (4.20-5.50); Red Cell Distribution Width 12.9 % (11.0-16.0); White Blood Count 13.5 X10*3/uL (4.8-10.8)
--- NOTE | 2024-05-11 19:32 | MHC.EDTECH ---
PT belongings locked and secured in POD Locker #1
[2024-05-11 19:48] LABS: Acetaminophen LAB < 3 mcg/mL (<30)
[2024-05-11 19:54] LABS: HCG Quantitative 37 mIU/mL
[2024-05-11 19:55] LABS: Alanine Aminotransferase 16 U/L (0-31); Albumin Level 4.1 g/dL (3.5-5.0); Alkaline Phosphatase 56 U/L (39-117); Anion Gap 13 (12-20); Aspartate Amino Transferase 20 U/L (5-31); Bilirubin Direct 0.1 mg/dL (0.0-0.5); Bilirubin Total 0.4 mg/dL (0.0-1.0); Blood Urea Nitrogen 19 mg/dL (9-16); Calcium 9.4 mg/dL (8.4-10.2); Carbon Dioxide 19 mmol/L (22-29); Chloride 111 mmol/L (96-108); Creatinine Clr Calc Pharmacy 124.4; Estimated Glomerular Filt Rate > 60; Ethanol < 10 mg/dL; Glucose Random 96 mg/dL (60-115); Potassium 3.9 mmol/L (3.3-5.1); Sodium 139 mmol/L (135-145)
--- NOTE | 2024-05-11 22:17 | PC.NURSE ---
grandmother just called to check on wellbing of patient , made sure we had her hpone number
[2024-05-12 06:16] VITALS: BP 114/63; PULSE 79; RESP 14; TEMP 36.5; O2SAT 100
--- NOTE | 2024-05-12 07:58 | PC.NURSE ---
pt in need of urine, admissions called wanting a UR Preg as well, tech notified we need urine pernell, will continue plan of care
--- NOTE | 2024-05-12 09:08 | PC.NURSE ---
pt awake/alert, ambulating on unit with steady gait, rr equal/non labored, pt is aware we need urine and is currently speaking on the patient phone.
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
--- NOTE | 2024-05-12 11:07 | PC.NURSE ---
leida from care team spoke with the patient about needing a urine, she gave a urine upon his request. this is currently being sent to the lab.
[2024-05-12 11:18] LABS: UPreg QC Valid YES; Urine Pregnancy NEGATIVE (NEGATIVE)
[2024-05-12 11:35] LABS: Amphetamine Screen Urine Not Detected (Not Detect); Barbiturates, Urine Not Detected (Not Detect); Benzodiazepines Screen Urine POSITIVE (Not Detect); Buprenorphine Scr Not Detected (Not Detect); Cannabinoid Screen Urine Not Detected (Not Detect); Cocaine Screen Urine Not Detected (Not Detect); Fentanyl, urine Not Detected (Not Detect); Methadone Screen, Urine Not Detected (Not Detect); Opiate Screen Urine Not Detected (Not Detect); Oxycodone Screen Urine Not Detected (Not Detect); Phencyclidine Screen Urine Not Detected (Not Detect)
[2024-05-12 11:52] VITALS: BP 118/68; PULSE 83; RESP 16; TEMP 36.6; O2SAT 100
--- NOTE | 2024-05-12 13:07 | MHC.CARE ---
Referral for 3 day follow up and placing pt on alert has been sent to [facility]. CARE Team has called to activate the follow up. Co response has been made aware
== END 2024-05-12 11:53 | disposition home or self-care (01) ==
PROVIDERS: Emergency Provider Emergency Medicine
DX: F41.9 Anxiety disorder, unspecified (principal); R45.1 Restlessness and agitation; F33.1 Major depressive disorder, recurrent, moderate; F43.10 Post-traumatic stress disorder, unspecified; N73.9 Female pelvic inflammatory disease, unspecified
CPT/HCPCS: 36415; 80048; 80076; 80143; 80307; 81025; 84702; 85025; 96372; 99284; J2060; S9485